=== PATIENT | female | born 1945 | race Caucasian/White ===

== ENCOUNTER 2024-10-21 13:16 | Emergency (ER) | payer OTHER ==
[2024-10-21] MEDS ORDERED: Acetaminophen/Codeine 30-300mg Tablet ONE (13:51)
[2024-10-21] MEDS ORDERED: Ondansetron ODT 4 MG TAB ONE (13:52)
== END 2024-10-21 15:51 | disposition home or self-care (01) ==
LOC: CSHERS 13:16
DX: S16.1XXA Strain of muscle, fascia and tendon at neck level, initial encounter (principal); S39.012A Strain of muscle, fascia and tendon of lower back, initial encounter; S46.911A Strain of unspecified muscle, fascia and tendon at shoulder and upper arm level, right arm, initial encounter; M25.551 Pain in right hip; I12.9 Hypertensive chronic kidney disease with stage 1 through stage 4 chronic kidney disease, or unspecified chronic kidney disease; N18.9 Chronic kidney disease, unspecified; Z79.899 Other long term (current) drug therapy; V49.49XA Driver injured in collision with other motor vehicles in traffic accident, initial encounter; Y93.89 Activity, other specified
CPT/HCPCS: 72125; 72131; Q0162